=== PATIENT | male | born 1985 | race Caucasian/White ===

== ENCOUNTER 2017-02-07 20:43 | Emergency (ER) | payer SELFPAY ==
[~2017-02-07] VITALS: Ht 188 cm; Wt 108.9 kg
[~2017-02-07 20:43] MED LIST: CLARITIN10 MG PO; IMODIUM2 MG OR; KEFLEX 500MG.500 MG PO; LORTAB 480 ML480 ML PO; NOMEDS XX; PHENERGAN 25MG.25 M1 PO; PREDNISONE 20MG20 MG PO; ZITHROMAX Z-PA250 M1 PO
[2017-02-07] MEDS ORDERED: AUGMENTIN 875-1 EACH PO (21:09)
[2017-02-07 21:10] VITALS: BP 162/98
--- NOTE | 2017-02-07 21:10 | Urgent Treatment Center Report ---
History of Present Issue Date/Time Seen by Provider 02/07/172056 Visit Reason Pt arrived:Walked Presenting Problem:PT C/O RIGHT SIDE OF FACE IS SWOLLEN SINCE YESTERDAY. 2 MONTHS AGO HAD BAD PAIN ON THAT SIDE AND THEN IT WENT AWAY. Location if Accident: Onset of symptoms date/time:/ or onset unknown for:MEDICAL HX UNKNOWN Have you (or family members/close friends) recently traveled outside the [place]? N If Yes, where/when: Have you had exposure to infectious disease within the past month? TB? Other? Specify: Patient states that about 2 months ago he had some dental pain on the right side of his face State that then it just went away State that yesterday he noticed it looked like his jaw was swelling and today it has continued to get worse as the day has went on ALLERGIES Coded Allergies: No Known Allergies (05/24/15) Home Medications Reported Medications No Known Home Medications History Medical History General CAD? No Angina: No PR: No Hypertension? No Hyperlipidemia? No CHF? No DVT? No PE? No COPD? No Asthma? No Anemia? No GERD? No Gastric ulcers? No GI Bleed? No Hernia? No Thyroid Problems? No Hypothyroidism? No CVA? No Seizures? No Diabetes? No UTI? No Stones? No BPH? No GB Disease: No Nephritic Syndrome? No Asplenia? No Hepatitis? No Sickle Cell Disease? No Arthritis? No Migraines? No Cataracts? No Glaucoma? No MRSA? No HIV? No TB? No Anxiety? No Depression? Yes Cancer? No Immunization HX DT/Tetanus Unknown Surgical Hx Previous Surgery?Y Appendectomy Family History Family HX Diabetes Yes Hypertension Yes Cancer Yes TB No Social History Smoking Hx Smoker: Current Every Day Smoker Tobacco: Yes Type Snuff Packs/day N/A Alcohol Alcohol: No Review of Systems All Other Systems Reviewed and Negative Physical Exam Vital Signs Vital Signs Date Time Temp Pulse Resp B/P Pulse O2 O2 Flow FiO2 Ox Delivery Rate 02/07 2049 99.1 110 18 169/109 95 General Appearance normal appearance, WD/WN, no apparent distress Ear, Nose, Throat dental caries, Swelling in left jawline and redness noted around bottom gum and tooth that appears broken Respiratory Status Yes: trachea midline, chest symmetrical, non tender chest. No: respiratory distress. Cardiovascular normal exam, regular rate/rhythm, no peripheral edema Neurologic alert, normal exam, oriented x 3 Medical Decision Making LABS/Meds/Orders Pt receiving controlled substance in ED? No Results/Orders Current Medication Orders Sig/Octaviano Start time Last Medication Dose Route Stop Time Status Admin Amoxicillin/ 500 MG ONCE ONE 02/07 2115 AC 02/07 Clavulanate Potassium PO 02/07 Departure Departure Time of Disposition 2105 Disposition DC Home or Self Care(routine) Clinical Impression Primary Impression: Dental abscess Condition STABLE Referrals Penelope ELLINGTON, Amanda Whalen MD,Theodore Troy MD,ELYSIA Em: Tomorrow-Call Office Patient Instructions Tooth Abscess Additional Instructions warm compresses on face Take antibiotics as prescribed Call tomorrow and make appointment and see dentist make appointment with ENT Return if needed Folow up with family doctor immediately If symptom worsen and you began running a fever, seeing red streaks go straight to the ER Discharge Counseling Counseled pt/family regarding diagnosis, medications/RX, home care, follow up needs Prescriptions Current Visit Scripts Amoxicillin/Potassium Clav (Augmentin 875-125 Tablet) 1 EACH PO BID #[id number] TAB at 2110
--- OUTSIDE RECORDS SUMMARY | 2017-02-09 18:02 | External Medical Summary Rpt | CCD ---
Demographics Preferred Language Mexican Marital Status Unknown Rastafari Affiliation Unknown Race Unknown Ethnic Group Unknown Author Author , LELA VOGEL Address Unknown Phone [email or web address] Care Team Providers Care Aperture Mask Etcher Name Role Phone [facility] Unavailable Unavailable [phone], [facility] [phone] # [phone] Purpose Continuity of Care Document - 12-13-2009 through 2016 Medications Na ND Rx Da Fi Fi Am Da Di Ph RX Ph St me C No te ll ll ou ys ag ar # ys at rm s nt no ma ic us Or Da si cy ia de te s n re d RA 00 08 08 4 60 30 RI 84 BE Ac NI 17 -1 -1 .0 TE 59 SS ti TI 24 7- 7- 00 13 ON ve DI 35 20 20 AI NE [address] 6 PH EP 30 AR HE 0 MA N MG CY A TA 03 BL 93 ET 8 # 03 93
--- OUTSIDE RECORDS SUMMARY | 2017-02-09 18:02 | External Medical Summary Rpt | CCD ---
Demographics Preferred Language Serbian Marital Status Unknown Yarsani Affiliation Unknown Race Unknown Ethnic Group Unknown Author Author , LELA VOGEL Address Unknown Phone Immunization No patient found.
--- OUTSIDE RECORDS SUMMARY | 2017-02-09 18:02 | External Medical Summary Rpt | CCD ---
Demographics Preferred Language Bengali Marital Status Unknown Confucianism Affiliation Unknown Race Unknown Ethnic Group Unknown Author Author , LELA VOGEL Address Unknown Phone Immunization No patient found.
--- OUTSIDE RECORDS SUMMARY | 2017-02-09 18:02 | External Medical Summary Rpt | CCD ---
Author Author , LELA VOGEL Address Unknown Phone Care Team Providers Care Motorcycle Subassembler Name Role Phone [facility] Unavailable Unavailable [phone], [facility] [phone] # [phone] Purpose Continuity of Care Document [...]
--- OUTSIDE RECORDS SUMMARY | 2017-02-09 18:02 | External Medical Summary Rpt ---
Author Author LELA Michel, [employer] Organization [employer] Address Unknown Phone Unavailable
--- OUTSIDE RECORDS SUMMARY | 2017-02-09 18:02 | External Medical Summary Rpt | CCD ---
Author Author , LELA VOGEL Address Unknown Phone [email or web address] Care Team Providers Care Jet Dyeing Machine Operator Name Role Phone [facility] Unavailable Unavailable [phone], [facility] [phone] # [phone] Purpose Continuity of Care Document [...]
--- OUTSIDE RECORDS SUMMARY | 2017-02-09 18:02 | External Medical Summary Rpt | CCD ---
Demographics Preferred Language Somali Marital Status Unknown Pentecostalism Affiliation Unknown Race Unknown Ethnic Group Unknown Author Author , LELA VOGEL Address Unknown Phone [email or web address] Care Team Providers Care Seasonal Sales Associate Name Role Phone [facility] Unavailable Unavailable [phone], [facility] [phone] # [phone] Purpose Continuity of Care Document [...]
== END 2017-02-07 21:13 | disposition home or self-care (01) ==
LOC: UTC 20:43
DX: K05.219 Aggressive periodontitis, localized, unspecified severity (principal); F17.290 Nicotine dependence, other tobacco product, uncomplicated